=== PATIENT | male | born 1980 | race Caucasian/White ===

== ENCOUNTER 2018-02-28 06:02 | Day surgery (SDC) | payer OTHER, BC ==
[2018-02-27 13:04] VITALS: BMI 37.1
[2018-02-28] MEDS ORDERED: CEFAZOLIN/Water 2 GM/20 ML SYRINGE ONE (06:50)
[2018-02-28 07:02] LABS: Anion Gap 12 mmol/L (10-20); BUN (Urea Nitrogen) 19 mg/dL (8.9-20.6); Calc. Creatinine Clearance 185 mL/min (70-130); Calcium 9.7 mg/dL (7.8-10.44); Carbon Dioxide 25 mmol/L (22-29); Chloride 104 mmol/L (98-107); Estimated GFR-MDRD 80; Glucose 94 mg/dL (70-105); Potassium 4.4 mmol/L (3.5-5.1); Sodium 137 mmol/L (136-145)
[2018-02-28 07:04] LABS: #Eosinphils 0.2 thou/uL (0.0-0.7); #Lymphocytes 4.2 thou/uL (1.20-3.40); #Monocytes 0.8 thou/uL (0.11-0.59); #Neutrophils 7.7 thou/uL (1.40-6.50); %Basophils 0.4 % (0.0-1.0); %Eosinophils 1.6 % (0.0-10.0); %Lymphocytes 32.2 % (21.0-51.0); %Monocytes 5.9 % (0.0-10.0); %Neutrophils 59.8 % (42.0-75.0); Hemoglobin 15.2 g/dL (14.0-18.0); Mean Corpuscular Hemoglobin 29.6 pg (27.0-31.0); Mean Corpuscular Volume 89.8 fL (78.0-98.0); Mean Platelet Volume 8.5 fL (7.4-10.4); Platelet Count 238 thou/uL (130-400); RBC Distribution Width 12.6 % (11.5-14.5); Red Blood Cell (RBC) Count 5.13 mill/uL (4.70-6.10); White Blood Cell (WBC) Count 12.9 thou/uL (4.8-10.8)
[2018-02-28] MEDS ORDERED: Bupivacaine PF 0.5% 30 ML VIAL ONE (07:48)
[2018-02-28] MEDS ORDERED: Fentanyl 100 MCG/2 ML VIAL ONE ×4 (07:52→09:44)
--- NOTE | 2018-02-28 09:28 | OP ---
DATE OF PROCEDURE: 02/28/2018 PREOPERATIVE DIAGNOSIS: Left-sided tennis elbow. POSTOPERATIVE DIAGNOSIS: Left-sided tennis elbow. PROCEDURE PERFORMED: 1. Left elbow open Nirschl procedure. 2. Placement of long arm splint to left upper extremity. SURGEON: Oscar Stein M.D. [employer] SERV[employer] REPRESENTATIVE: None. BLOOD LOSS: Minimal. COMPLICATIONS: None. ANESTHESIA: He had a general anesthetic. DISPOSITION: He went to recovery room in stable condition. IMPLANTS: No implants. INDICATIONS: A 37-year-old male who has failed nonoperative treatment for left tennis elbow and at t his time he wished to have the procedure performed. DESCRIPTION OF PROCEDURE: After all appropriate consent forms were explained and signed, he was take n back to the operating room and at this time was given a general anesthetic. Tourniquet was placed in the left arm and the arm was then prepped and draped in the standard surgical fashion. The incisi on was drawn out. The limb was exsanguinated and the tourniquet was taken to 250 mmHg. Using loupe magnification, a 10 blade was incised down through skin only. Bipolar cautery was used to coagulate any brisk venous bleeding. We then were able to find the interval between the extensor longus and th e extensor aponeurosis and this was developed with a new 15 blade at the depth of about 3 mm taking t he ECRL medially and superiorly. This exposed the underlying ECRB with its poor appearing/tendinotic tissue. A 15 blade was used to incise this tissue en block. Another 15 blade was then used to perf orm a scratch test removing any remaining poor tissue. This left exposed insertion site on the bone. A drill bit was then used to drill 3 drill holes into the canal of the humerus to promote healing w ith bone marrow blood. At this time, the wound was thoroughly irrigated and dried. We then used a r unning #1 Vicryl suture to close our interval and once this was done, some 4-0 Vicryl and a running V -Loc was used to close skin. SurgiSeal skin glue was used on top of the skin. Once this had dried, a sterile dressing was applied, tourniquet let down. Fingers pinked up nicely. At this time, a long arm splint was then placed on the left upper extremity. The patient was then awakened and he was ta estela to the recovery room in stable condition. All counts were correct at the end of the case and he did receive preoperative IV antibiotics.
[2018-02-28] MEDS ORDERED: PROPOFOL 200 MG/20 ML VIAL ONE (17:07)
[2018-02-28] MEDS ORDERED: Ondansetron HCl/PF 4 MG/2 ML Vial ONE (17:07)
[2018-02-28] MEDS ORDERED: Dexamethasone 20 MG/5 ML VIAL ONE (17:07)
[2018-02-28] MEDS ORDERED: Ketorolac Tromethamine 30 MG/ML VIAL ONE (17:07)
== END 2018-02-28 10:52 | disposition home or self-care (01) ==
LOC: SDC 06:02
PROVIDERS: ATTEND Orthopaedic Surgery
PROC: 0LN40ZZ Release Left Upper Arm Tendon, Open Approach (ICD-10-PCS; principal; 2018-02-28)
DX: M77.12 Lateral epicondylitis, left elbow (principal); I10 Essential (primary) hypertension; F17.200 Nicotine dependence, unspecified, uncomplicated; Z79.899 Other long term (current) drug therapy
CPT/HCPCS: 36415; 80048; 85025; 93005; 93010; 96374; J1100; J1885; J2405; J2704; J3010; S0020

== ENCOUNTER 2022-02-07 11:30 | Outpatient (CLI) | payer BC, OTHER | END 2022-02-07 11:31 | disposition home or self-care (01) | LOC: SCSMRI 11:30 | PROVIDERS: ATTEND Orthopaedic Surgery | DX: M25.522 Pain in left elbow (principal); M25.572 Pain in left ankle and joints of left foot; R93.7 Abnormal findings on diagnostic imaging of other parts of musculoskeletal system; Z98.890 Other specified postprocedural states ==

== ENCOUNTER 2022-03-17 09:29 | Outpatient (CLI) | payer BC, OTHER | END 2022-03-17 09:30 | disposition home or self-care (01) | LOC: SCSMRI 09:29 | PROVIDERS: ATTEND Orthopaedic Surgery Hand Surgery | DX: G56.02 Carpal tunnel syndrome, left upper limb (principal); M67.432 Ganglion, left wrist ==

== ENCOUNTER 2022-05-19 10:15 | Outpatient (CLI) | payer OTHER ==
[2022-05-19 10:59] LABS: #Basophils 0.1 10x3/uL (0.0-0.2); #Eosinphils 0.1 10x3/uL (0.0-0.5); #Monocytes 0.5 10x3/uL (0.0-1.1); #Neutrophils 4.3 10x3/uL (1.5-8.4); %Eosinophils 1.8 % (0.0-6.0); %Lymphocytes 31.7 % (18.0-47.0); %Monocytes 7.1 % (0.0-10.0); %Neutrophils 58.1 % (40.0-75.0); Hemoglobin 16.8 g/dL (13.5-17.5); Mean Corpuscular HGB CONC 35.1 g/dL (32.0-36.0); Mean Corpuscular Hemoglobin 29.6 pg (27.0-33.0); Mean Corpuscular Volume 84.5 fl (81.2-95.1); Mean Platelet Volume 10.7 fl (7.4-10.4); Platelet Count 292 10x3/uL (150-450); RBC Distribution Width 14.5 % (11.5-14.5); Red Blood Cell (RBC) Count 5.67 10x6/uL (4.32-5.72); White Blood Cell (WBC) Count 7.3 10x3/uL (3.5-10.5)
== END 2022-05-19 10:16 | disposition home or self-care (01) ==
LOC: LABBT 10:15
PROVIDERS: ATTEND Orthopaedic Surgery Hand Surgery
DX: Z01.812 Encounter for preprocedural laboratory examination (principal); G56.02 Carpal tunnel syndrome, left upper limb; G56.22 Lesion of ulnar nerve, left upper limb; M67.432 Ganglion, left wrist
CPT/HCPCS: 85025

== ENCOUNTER 2022-05-24 05:35 | Day surgery (SDC) | payer OTHER ==
[2022-05-20 11:29] VITALS: BMI 29.9
[2022-05-24] MEDS ORDERED: Bupivacaine PF 0.5% 30 ML VIAL ONE ×2 (06:20→14:11)
[2022-05-24] MEDS ORDERED: Bacitracin Zinc Ointment 30 gm TUBE ONE (06:20)
[2022-05-24] MEDS ORDERED: Neomycin-Polymyxin 1 ML AMP ONE (06:20)
[2022-05-24] MEDS ORDERED: Betamet Acet/Betamet Na Ph 30 MG/5 ML VIAL ONE (06:20)
[2022-05-24] MEDS ORDERED: Dexmedetomidine 200 MCG/2 ML VIAL ONE (06:35)
[2022-05-24] MEDS ORDERED: Fentanyl 250 MCG/5 ML VIAL ONE (06:35)
[2022-05-24] MEDS ORDERED: Sodium Chloride 0.9% 100 ML ONE (06:40)
[2022-05-24] MEDS ORDERED: CEFAZOLIN 2 GM VIAL ONE (06:40)
[2022-05-24] MEDS ORDERED: Dexamethasone 20 MG/5 ML VIAL ONE (07:29)
[2022-05-24] MEDS ORDERED: PROPOFOL 200 MG/20 ML VIAL ONE (07:29)
[2022-05-24] MEDS ORDERED: Glycopyrrolate 0.2 MG/ML 5 ML SYRINGE ONE (07:29)
[2022-05-24] MEDS ORDERED: Ondansetron PF 4 MG/2 ML Vial ONE (07:29)
[2022-05-24] MEDS ORDERED: Ketorolac Tromethamine 30 MG/ML VIAL ONE (07:29)
[2022-05-24] MEDS ORDERED: ePHEDrine 50 MG/ML VIAL ONE (07:29)
[2022-05-24] MEDS ORDERED: Fentanyl 100 MCG/2 ML VIAL ONE ×2 (10:25→11:02)
[2022-05-24] MEDS ORDERED: HYDROcodone/Acetaminophen 5/325 mg Tablet ONE (11:46)
[2022-05-24] MEDS ORDERED: Morphine 2 MG/ML VIAL ONE ×2 (12:40→12:52)
== END 2022-05-24 15:00 | disposition home or self-care (01) ==
LOC: SDC 05:35
PROVIDERS: ATTEND Orthopaedic Surgery Hand Surgery
PROC: 01N50ZZ Release Median Nerve, Open Approach (ICD-10-PCS; principal; 2022-05-24)
PROC: 01N40ZZ Release Ulnar Nerve, Open Approach (ICD-10-PCS; principal; 2022-05-24)
PROC: 01N60ZZ Release Radial Nerve, Open Approach (ICD-10-PCS; principal; 2022-05-24)
PROC: 0RBP0ZZ Excision of Left Wrist Joint, Open Approach (ICD-10-PCS; principal; 2022-05-24)
DX: G56.32 Lesion of radial nerve, left upper limb (principal); G56.22 Lesion of ulnar nerve, left upper limb; G56.02 Carpal tunnel syndrome, left upper limb; M71.332 Other bursal cyst, left wrist; I10 Essential (primary) hypertension; Z87.891 Personal history of nicotine dependence; Z79.811 Long term (current) use of aromatase inhibitors; Z79.899 Other long term (current) drug therapy
CPT/HCPCS: 88305; J0702; J1100; J1885; J2272; J2405; J2704; J3010; J3490; S0020

== ENCOUNTER 2023-06-20 14:00 | Outpatient (CLI) | payer OTHER ==
[2023-06-20 15:33] LABS: #Basophils 0.1 10x3/uL (0.0-0.2); #Eosinphils 0.2 10x3/uL (0.0-0.5); #Monocytes 0.7 10x3/uL (0.0-1.1); #Neutrophils 5.7 10x3/uL (1.5-8.4); %Basophils 0.7 % (0.0-2.0); %Eosinophils 1.8 % (0.0-6.0); %Lymphocytes 27.7 % (18.0-47.0); %Monocytes 7.1 % (0.0-10.0); %Neutrophils 62.3 % (40.0-75.0); Hematocrit 47.3 % (38.8-50.0); Hemoglobin 16.6 g/dL (13.5-17.5); Mean Corpuscular HGB CONC 35.1 g/dL (32.0-36.0); Mean Corpuscular Hemoglobin 30.7 pg (27.0-33.0); Mean Corpuscular Volume 87.4 fl (81.2-95.1); Mean Platelet Volume 11.8 fl (7.4-10.4); Platelet Count 243 10x3/uL (150-450); RBC Distribution Width 13.8 % (11.5-14.5); Red Blood Cell (RBC) Count 5.41 10x6/uL (4.32-5.72); White Blood Cell (WBC) Count 9.1 10x3/uL (3.5-10.5)
== END 2023-06-20 14:01 | disposition home or self-care (01) ==
LOC: LABBT 14:00
PROVIDERS: ATTEND Orthopaedic Surgery Hand Surgery
DX: Z01.812 Encounter for preprocedural laboratory examination (principal); G56.01 Carpal tunnel syndrome, right upper limb; G56.21 Lesion of ulnar nerve, right upper limb
CPT/HCPCS: 85025

== ENCOUNTER 2023-06-23 06:21 | Day surgery (SDC) | payer OTHER ==
[2023-06-20 14:25] VITALS: BMI 31.1
[2023-06-23] MEDS ORDERED: Sodium Chloride 0.9% 100 ML ONE (07:10)
[2023-06-23] MEDS ORDERED: CEFAZOLIN 2 GM VIAL ONE (07:10)
[2023-06-23] MEDS ORDERED: Ondansetron PF 4 MG/2 ML Vial ONE (08:13)
[2023-06-23] MEDS ORDERED: fentaNYL PF 100 MCG/2 ML SYRINGE ONE (08:13)
[2023-06-23] MEDS ORDERED: Dexamethasone 4 mg/ml Vial ONE (08:13)
[2023-06-23] MEDS ORDERED: Lidocaine 1% PF 5 ML VIAL ONE (08:13)
[2023-06-23] MEDS ORDERED: PROPOFOL 20 ML ONE ×2 (08:13→09:12)
[2023-06-23] MEDS ORDERED: Midazolam HCl 2 mg/2 ml Vial ONE (08:13)
[2023-06-23] MEDS ORDERED: Bacitracin Zinc Ointment 30 gm TUBE ONE (08:25)
[2023-06-23] MEDS ORDERED: Bupivacaine PF 0.5% 30 ML VIAL ONE ×2 (08:25→09:27)
[2023-06-23] MEDS ORDERED: HYDROmorphone 2 MG/ML VIAL ONE (09:15)
[2023-06-23] MEDS ORDERED: PHENYLEPHRINE-NS 100 MCG/ML 10 ML SYRINGE ONE ×2 (09:47→10:33)
[2023-06-23] MEDS ORDERED: Betamet Acet/Betamet Na Ph 30 MG/5 ML VIAL ONE (09:54)
[2023-06-23] MEDS ORDERED: Ketorolac Tromethamine 30 MG (1 mL) VIAL ONE ×2 (12:16→12:17)
[2023-06-23] MEDS ORDERED: Fentanyl 250 MCG/5 ML VIAL ONE (12:26)
[2023-06-23] MEDS ORDERED: HYDROcodone/Acetaminophen 5/325 mg Tablet ONE (13:35)
[2023-06-23] MEDS ORDERED: Morphine 2 MG/ML VIAL ONE (13:35)
== END 2023-06-23 14:38 | disposition home or self-care (01) ==
LOC: SDC 06:21
PROVIDERS: ATTEND Orthopaedic Surgery Hand Surgery
PROC: 01N40ZZ Release Ulnar Nerve, Open Approach (ICD-10-PCS; principal; 2023-06-23)
PROC: 01N60ZZ Release Radial Nerve, Open Approach (ICD-10-PCS; principal; 2023-06-23)
PROC: 01N50ZZ Release Median Nerve, Open Approach (ICD-10-PCS; principal; 2023-06-23)
DX: G56.01 Carpal tunnel syndrome, right upper limb (principal); G56.21 Lesion of ulnar nerve, right upper limb; G56.31 Lesion of radial nerve, right upper limb; I10 Essential (primary) hypertension; Z87.891 Personal history of nicotine dependence; Z90.89 Acquired absence of other organs; Z79.899 Other long term (current) drug therapy
CPT/HCPCS: J0665; J0702; J1100; J1170; J1885; J2250; J2272; J2405; J2704; J3010; J3490

== ENCOUNTER 2024-04-09 10:48 | Outpatient (CLI) | payer OTHER | END 2024-04-09 10:49 | disposition home or self-care (01) | LOC: SCSMRI 10:48 | PROVIDERS: ATTEND Orthopaedic Surgery Hand Surgery | DX: M25.521 Pain in right elbow (principal); M77.11 Lateral epicondylitis, right elbow; S56.511A Strain of other extensor muscle, fascia and tendon at forearm level, right arm, initial encounter ==

== ENCOUNTER 2024-07-23 08:10 | Day surgery (SDC) | payer OTHER ==
[2024-07-22 12:50] VITALS: BMI 30.6
[2024-07-23] MEDS ORDERED: Midazolam HCl 2 mg/2 ml Vial ONE (08:23)
[2024-07-23] MEDS ORDERED: Dexamethasone 20 MG/5 ML VIAL ONE (08:23)
[2024-07-23] MEDS ORDERED: Lidocaine 2% PF 5 ML VIAL ONE (08:23)
[2024-07-23] MEDS ORDERED: Ondansetron PF 4 MG/2 ML Vial ONE (08:23)
[2024-07-23] MEDS ORDERED: fentaNYL PF 100 MCG/2 ML SYRINGE ONE ×3 (08:23→10:50)
[2024-07-23] MEDS ORDERED: PROPOFOL 20 ML ONE ×2 (08:23→08:51)
[2024-07-23] MEDS ORDERED: Bupivacaine PF 0.5% 30 ML VIAL ONE (08:28)
[2024-07-23] MEDS ORDERED: CEFAZOLIN 2 GM VIAL ONE (08:28)
[2024-07-23] MEDS ORDERED: Bacitracin 1 PK ONE (08:32)
[2024-07-23] MEDS ORDERED: Albuterol HFA (OR) 200 PUFF INH ONE (08:55)
[2024-07-23] MEDS ORDERED: Ketorolac Tromethamine 30 MG (1 mL) VIAL ONE (11:53)
[2024-07-23] MEDS ORDERED: HYDROmorphone 0.5 MG/0.5 ML SYRINGE ONE (11:54)
== END 2024-07-23 12:49 | disposition home or self-care (01) ==
LOC: SDC 08:10
PROVIDERS: ATTEND Orthopaedic Surgery Hand Surgery
PROC: 0LS30ZZ Reposition Right Upper Arm Tendon, Open Approach (ICD-10-PCS; principal; 2024-07-23)
DX: M77.11 Lateral epicondylitis, right elbow (principal); T78.40XA Allergy, unspecified, initial encounter; G56.21 Lesion of ulnar nerve, right upper limb; G56.31 Lesion of radial nerve, right upper limb; G56.01 Carpal tunnel syndrome, right upper limb; M65.831 Other synovitis and tenosynovitis, right forearm; M75.21 Bicipital tendinitis, right shoulder; I10 Essential (primary) hypertension; F32.A Depression, unspecified; J18.9 Pneumonia, unspecified organism; Z98.84 Bariatric surgery status; Z87.891 Personal history of nicotine dependence; Z90.89 Acquired absence of other organs; Z88.6 Allergy status to analgesic agent; Z79.899 Other long term (current) drug therapy; X58.XXXA Exposure to other specified factors, initial encounter
CPT/HCPCS: 88305; 88311; 93005; 93010; A6223; C1894; J0665; J1100; J1171; J1885; J2250; J2405; J2704